=== PATIENT | female | born 1980 | race Two or more races ===

== ENCOUNTER 2020-04-12 12:09 | Emergency (ER) | payer OTHER ==
[~2020-04-12] VITALS: Ht 154.9 cm; Wt 64.9 kg
[2020-04-12] MEDS ORDERED: FOLIC ACID0.8 M1 (12:32)
[2020-04-12] MEDS ORDERED: EXCEDRIN MIGRA1 EAC1 (12:32)
[2020-04-12] MEDS ORDERED: PRENA1 CHEW TA1.4 MG (12:33)
[2020-04-12] MEDS ORDERED: NAPR500T14 PO (17:50)
[2020-04-12] MEDS ORDERED: AMOX1TAB5 PO (17:50)
== END 2020-04-12 18:07 | disposition home or self-care (01) ==
LOC: ER 12:09
DX: O26.851 Spotting complicating pregnancy, first trimester (principal); O36.80X0 Pregnancy with inconclusive fetal viability, not applicable or unspecified; Z34.01 Encounter for supervision of normal first pregnancy, first trimester

== ENCOUNTER 2021-03-09 06:55 | Emergency (ER) | payer OTHER ==
[~2021-03-09] VITALS: Ht 154.9 cm; Wt 70.3 kg
[~2021-03-09 06:55] MED LIST: AMOX1TAB5 PO; EXCEDRIN MIGRA1 EAC1; FOLIC ACID0.8 M1; NAPR500T14 PO; PRENA1 CHEW TA1.4 MG
[2021-03-09] MEDS ORDERED: DICLOFENAC POTA50 MG PO (12:32)
[2021-03-09] MEDS ORDERED: VITAMIN C500 M6 PO (12:32)
== END 2021-03-09 14:56 ==
LOC: ER 06:55
DX: R07.89 Other chest pain (principal); R53.1 Weakness; B34.9 Viral infection, unspecified

== ENCOUNTER 2024-10-06 10:19 | Emergency (ER) | payer OTHER ==
[~2024-10-06] VITALS: Ht 157.5 cm; Wt 70.3 kg
[~2024-10-06 10:19] MED LIST changes: +DICLOFENAC POTA50 MG PO; +VITAMIN C500 M6 PO
[2024-10-06] MEDS ORDERED: LEVALBUTEROL HCL 1.25 MG/3 ML SOLUTION IH STA (11:11)
[2024-10-06] MEDS ORDERED: BUDESONIDE 0.5 MG/2 ML AMPUL.NEB IH STA (11:11)
[2024-10-06] MEDS ORDERED: LEVALBUTEROL HCL 0.63 MG/3 ML SOLUTION IH ONE (11:55)
[2024-10-06] MEDS ORDERED: BUDESONIDE 0.5 MG/2 ML AMPUL.NEB IH ONE (11:55)
[2024-10-06 12:13] LABS: BASO % 0.6 % (0.1-1.2); EOS # 0.21 (0.04-0.54); EOS % 4.3 % (0.7-7.0); HEMATOCRIT 41.3 % (34.1-44.9); HEMOGLOBIN 13.4 g/dL (11.2-15.7); LYMPH # 1.28 (1.18-3.74); LYMPH % 26.2 % (19.3-53.1); MEAN CORPUSCULAR HEMOGLOBIN 29.3 pg (25.6-32.2); MONO # 0.58 (0.24-0.82); MONO % 11.9 % (4.7-12.5); NEUT # 2.76 (1.56-6.13); NEUT % 56.6 % (34.0-71.1); PLATELET COUNT 436 K/uL (163-369); RED BLOOD COUNT 4.58 M/uL (3.93-5.22); RED CELL DISTRIBUTION WIDTH 12.8 % (11.6-14.4)
[2024-10-06 12:43] LABS: COVID-19 AG NEGATIVE (NEGATIVE); INFLUENZA A AG NEGATIVE (NEGATIVE)
[2024-10-06 12:55] LABS: CALCIUM 9.5 mg/dL (8.5-10.1); CREATININE SERUM 0.75 mg/dL (0.55-1.02); GFR 83.56; POTASSIUM 4.51 mEq/L (3.5-5.1)
[2024-10-06 13:00] LABS: URINE APPEARANCE Clear; URINE BILIRRUBIN Negative (NEGATIVE); URINE BLOOD Negative; URINE COLOR Yellow; URINE GLUCOSE Negative (NEGATIVE); URINE KETONE Negative (NEGATIVE); URINE LEUKOCYTE Negative; URINE NITRATE Negative; URINE PROTEIN Negative (NEGATIVE); URINE UROBILINOGEN 0.2 E.U./dl
[2024-10-06 13:03] LABS: URINE BACTERIA 423.3 uL (0.0-1933); URINE EPITHELIAL CELLS 38.9 uL (0.0-38.8); URINE RBC 6.6 uL (0.0-20.8); URINE WBC 9.1 uL (0.0-23.2)
[2024-10-06 13:17] LABS: URINE CAST 0.29 uL (0.0-1.40)
== END 2024-10-06 16:32 | disposition home or self-care (01) ==
LOC: ER 10:46
PROVIDERS: General Practice
DX: J45.909 Unspecified asthma, uncomplicated (principal); Z20.822 Contact with and (suspected) exposure to COVID-19; Z91.013 Allergy to seafood

== ENCOUNTER 2025-02-28 13:57 | Emergency (ER) | payer OTHER ==
[~2025-02-28] VITALS: Ht 154.9 cm; Wt 70.8 kg
[2025-02-28 16:48] LABS: BASO % 0.4 % (0.1-1.2); EOS # 0.07 (0.04-0.54); EOS % 0.6 % (0.7-7.0); LYMPH # 1.77 (1.18-3.74); LYMPH % 15.8 % (19.3-53.1); MEAN PLATELET VOLUME 8.70 fl (9.4-12.4); MONO # 0.52 (0.24-0.82); MONO % 4.6 % (4.7-12.5); NEUT # 8.78 (1.56-6.13); NEUT % 78.2 % (34.0-71.1); RED CELL DISTRIBUTION WIDTH 13.2 % (11.6-14.4)
[2025-02-28 16:54] LABS: URINE APPEARANCE Cloudy; URINE BILIRRUBIN Negative (NEGATIVE); URINE BLOOD Trace; URINE COLOR Dark Yellow; URINE GLUCOSE Negative (NEGATIVE); URINE KETONE Trace (NEGATIVE); URINE LEUKOCYTE Negative; URINE NITRATE Negative; URINE PROTEIN Trace (NEGATIVE); URINE UROBILINOGEN 1.0 E.U./dl
[2025-02-28 16:56] LABS: URINE BACTERIA 1227.5 uL (0.0-1933); URINE CAST 2.05 uL (0.0-1.40); URINE EPITHELIAL CELLS 67.9 uL (0.0-38.8); URINE RBC 13.7 uL (0.0-20.8); URINE WBC 19.5 uL (0.0-23.2)
[2025-02-28 17:01] LABS: ALT/SGPT 25.0 U/L (12-78); AST/SGOT 14.0 U/L (15-37); BILIRUBIN TOTAL 0.14 mg/dL (0.3-1.2); BUN CREA RATIO 16.0 (7.0-25.0); CREATININE SERUM 0.9 mg/dL (0.55-1.02); GFR 67.41; GLOBULINA 4.0 G/DL (2.4-3.5); GLUCOSE FASTING 115.0 mg/dL (65-100); OSMOLALITY SERUM 286.0 MOSM/KG (275-295)
[2025-02-28 17:04] LABS: URINE CRYSTALS FEW /HPF
[2025-02-28] MEDS ORDERED: KETOROLAC TROMETHAMINE 30 MG VIAL IM ONE (19:00)
== END 2025-02-28 21:39 ==
LOC: ER 13:57
PROVIDERS: General Practice
DX: N80.103 Endometriosis of bilateral ovaries, unspecified depth (principal); R10.20 Pelvic and perineal pain unspecified side; R30.0 Dysuria; Z91.013 Allergy to seafood